=== PATIENT | female | born 1990 | race American Indian/Alaskan Native ===

== ENCOUNTER 2018-11-06 18:33 | Emergency (ER) | payer OTHER ==
[2018-11-06 18:39] VITALS: RESP 16; TEMP 99; O2SAT 99
[2018-11-06] MEDS ORDERED: Oxycodone/Acetaminophen 5/325 mg Tab PO ONE (19:26)
[2018-11-06] MEDS ORDERED: Tdap Vaccine 0.5 ml Vial (10-64 yrs) IM ONE ×2 (19:27→19:53)
[2018-11-06] MEDS ORDERED: Oxycodone/Acetaminophen 5/325 mg Tab ONE (19:52)
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
[2018-11-06 21:26] VITALS: BP 117/75; PULSE 88
== END 2018-11-06 21:24 | disposition home or self-care (01) ==
LOC: MERGE 18:33 → EDSEX 18:33 → H.ER 18:33
DX: S01.112A Laceration without foreign body of left eyelid and periocular area, initial encounter (principal); S00.83XA Contusion of other part of head, initial encounter; Y04.0XXA Assault by unarmed brawl or fight, initial encounter; Z23 Encounter for immunization